=== PATIENT | female | born 1980 | race Caucasian/White ===

== ENCOUNTER 2016-09-07 11:55 | Emergency (ER) | payer MEDICAID ==
[~2016-09-07 11:55] MED LIST: COLACE-DPS100 MG PO; FIORICET DPS1 TAB PO; FLAGYL-DPS250 MG; FLAGYL-DPS500 MG PO; MOTRIN-DPS800 MG PO; NIPPLECREAM TP; PERCOCET 5 DPS1 TAB PO; PRENATAL PLUS1 EACH PO; VISTARIL25 MG PO
--- NOTE | 2016-09-11 14:46 | ER ---
ADMIT: 09/07/2016 RM/LOC: ER [facility] MR#: [id number] [address] [id number] [address] [place] [id number] Emergency Room Report SEX: F AGE: 36 : 1980 DATE: 09/07/2016 ADDENDUM: CHIEF COMPLAINT: Low back pain. HISTORY OF PRESENT ILLNESS: This 36-year-old female who works at [employer] who just bent over to look at a license plate last night. She had excruciating pain that started then. She did have some hydrocodone at home. She took her last pill last night. Pain is worse with any kind of movement of her spine with flexion, rotation. COURSE IN THE EMERGENCY ROOM: I ordered a script of [address] [place] for her. I told her to alternate this with ibuprofen, activity as tolerated. Stretch, use ice, heat, and follow up with her PCP if worsen. CLINICAL IMPRESSION: Acute on chronic low back pain. AMITA Altamirano / Desmond Wetzel MD / lucyl JOB #: [id number] CC: Desmond Wetzel MD, Attending Physician UNKNOWN, Family Physician
== END 2016-09-07 12:45 | disposition home or self-care (01) ==
LOC: ER 11:55
DX: M54.5 Low back pain (principal); G89.29 Other chronic pain; X50.1XXA Overexertion from prolonged static or awkward postures, initial encounter; F17.200 Nicotine dependence, unspecified, uncomplicated; Z98.890 Other specified postprocedural states; Z79.899 Other long term (current) drug therapy